=== PATIENT | female | born 1965 | race African-American/Black ===

== ENCOUNTER 2017-04-24 18:13 | Emergency (ER) | payer OTHER ==
[~2017-04-24] VITALS: Ht 157.5 cm; Wt 70.5 kg
[~2017-04-24 18:13] MED LIST: ATARAX,VISTARIL25 MG PO; COZAAR25 MG PO; HYDROCHLOROTHIA25 MG; HYDROCHLOROTHIA25 MG PO; HYDROCODON-ACE1 EAC7 PO; KENALOG,ARISTOC80 G1 TP; LEXAPRO10 MG PO; LISINOPRIL20 MG; LOSARTAN POTASS25 MG PO; MELOXICAM15 MG PO; NAPROXEN500 MG PO; PRINIVIL20 MG PO; ZOFRAN4 MG PO
[2017-04-24] MEDS ORDERED: PERCOCET 5/31 TABLET PO (20:05)
[2017-04-24] MEDS ORDERED: MOTRIN800 MG PO (20:05)
[2017-04-24 20:43] VITALS: BP 167/91
== END 2017-04-24 20:45 | disposition home or self-care (01) ==
LOC: EME 18:13
DX: S80.02XA Contusion of left knee, initial encounter (principal); S93.602A Unspecified sprain of left foot, initial encounter; S80.212A Abrasion, left knee, initial encounter; W18.30XA Fall on same level, unspecified, initial encounter; I10 Essential (primary) hypertension
CPT/HCPCS: 73564; 73630; 99281; 99284